=== PATIENT | male | born 1985 | race Caucasian/White ===

== ENCOUNTER 2022-10-18 14:09 | Emergency (ER) | payer OTHER, SELFPAY ==
[2022-10-18] VITALS (16 sets, daily range): BP systolic 110–138; BP diastolic 75–88; PULSE 62–85; RESP 14–24; TEMP 36.8; O2SAT 96–100; BMI 29.7
--- NOTE | 2022-10-18 14:22 | DI.RAD.S_ITS ---
PROCEDURE: XR CHEST 1V INDICATIONS: chest pain TECHNIQUE: One view of the chest was acquired. COMPARISON: None. FINDINGS: Surgical changes and devices: None. Lungs and pleura: Lungs are clear. No pleural effusions or pneumothorax. Mediastinum: Mediastinal contours appear normal. Heart size is normal. Bones and chest wall: No suspicious bony lesions. Overlying soft tissues appear unremarkable. IMPRESSION: No acute cardiopulmonary disease process. Dictated by: Neli Shultz MD, PhD on 10/18/2022 at 14:42 Approved by: Neli Shultz MD, PhD on 10/18/2022 at 14:42
[2022-10-18 15:18] LABS: Add Manual Diff / Slide Review NO; Basophils Absolute Auto 0 /uL (0-100); Basophils Percent Auto 0.7 % (0-2); Eosinophils Absolute Auto 100 /uL (0-450); Eosinophils Percent Auto 1.9 % (2-4); Hematocrit 39.2 % (41-53); Hemoglobin 13.3 g/dL (13.5-17.5); Lymphocytes Absolute Auto 1700 /uL (1100-4500); Lymphocytes Percent Auto 30.1 % (25-40); Mean Corpuscular HGB Conc 33.8 % (30-36); Mean Corpuscular Hemoglobin 28.2 PG (26-34); Mean Corpuscular Volume 83.3 fL (80-100); Monocytes Absolute Auto 700 /uL (0-900); Monocytes Percent Auto 11.9 % (3-14); Neutrophils Absolute Auto 3000 /uL (1500-7000); Neutrophils Percent Auto 55.4 % (50-75); Platelet Count 279 X10^3/uL (150-400); Red Blood Cell Count 4.71 X10^6/uL (4.5-5.9); Red Cell Distribution Width 13.8 % (11.6-14.8); White Blood Cell Count 5.5 X10^3/uL (4.5-11.0)
[2022-10-18] MEDS: ASPIRIN 81 MG CHEW TAB 324 MG PO (15:20)
[2022-10-18 15:24] LABS: INR 1.1 (0.9-1.3); Prothrombin Time 12.7 SECONDS (10.1-12.7)
[2022-10-18 15:27] LABS: PTT Partial Thromboplastin Tim 31 SECONDS (26-36)
[2022-10-18 15:29] LABS: Alanine Aminotransferase 26 IU/L (<50); Albumin 4.4 g/dL (3.5-5.0); Albumin Globulin Ratio 1.5 (1.0-2.8); Alkaline Phosphatase 59 U/L (38-126); Aspartate Aminotransferase 31 IU/L (17-59); Bilirubin Total 0.6 mg/dL (0.2-1.3); Blood Urea Nitrogen 16 mg/dL (9-20); Calcium 9.1 mg/dL (8.4-10.2); Carbon Dioxide 27 mmol/L (22-32); Chloride 102 mmol/L (98-107); Creatine Kinase 483 U/L (55-170); Estimated Glomerular Filt Rate > 60 mL/min (>60); Glucose 91 mg/dL (70-100); HEMOLYSIS < 15 (0-50); Lipase 67 U/L (23-300); Potassium 3.9 mmol/L (3.4-5.1); Sodium 138 mmol/L (137-145); Total Protein 7.4 g/dL (6.3-8.2)
[2022-10-18 15:41] LABS: Troponin I < 0.012 ng/mL (0.01-0.034)
[2022-10-18] MEDS: KETOROLAC 30 MG/ML VIAL 15 MG IV (17:29)
--- NOTE | 2022-10-18 17:52 | PC.NURSE ---
2nd EKG unable to be completed on this patient due to patient refusal as he states I'm close to leaving if I'm no seen soon. Provider notified.
--- NOTE | 2022-10-18 18:08 | ED_ITS ---
HPI - Chest Pain General Chief Complaint: Chest Pain Stated Complaint: Chest pain, SOB Time Seen by Provider: 10/18/22 14:42 Source: patient Mode of arrival: Ambulatory Limitations: no limitations History of Present Illness HPI narrative: Patient is a 36-year-old male who presents today with 3 days of increasing chest pressure. He reports that over last weekend did some work around the house pulled up some floorboard smell some chemical or mold stuff last 3 days he is had some pressure in his chest this morning he woke up it was worse on the left side. He is also noticed that he is having shortness of breath with exertion while going upstairs which is new him. He denies nausea vomiting or sweating. He does some burning sensation in his epigastric region but no significant burning in his chest no prior history of acid reflux. He reports that he gets his cholesterol checked himself and cholesterol was 266. He has been on a wait list to see a primary care for some time and actually has an appointment in 1 week. He reports that 2 of his uncles had MIs in their 40s but immediate family no known cardiac history. He is a nonsmoker. Pain is not reproduced with palpation or movement or breathing. It is fairly constant no provocation or palliation. Related Data Allergies Allergy/AdvReac Type Severity Reaction Status Date / Time No Known Drug Allergies Allergy Verified 10/18/22 14:21 Review of Systems Review of Systems ROS Unobtainable: All systems reviewed & are unremarkable except as noted in HPI and below Patient History Social History Smoking Status: Never smoker Smoking Status: Never smoker alcohol intake frequency: 0-2 drinks per day Substance Use Type: does not use Exam Initial Vital Signs Initial Vital Signs: Vital Signs Temperature 98.3 F 10/18/22 14:16 Pulse Rate 62 10/18/22 14:16 Respiratory Rate 20 10/18/22 14:16 Blood Pressure 128/86 10/18/22 14:16 Pulse Oximetry 97 10/18/22 14:16 Oxygen Delivery Method Room Air 10/18/22 14:16 GENERAL: Alert pleasant well-appearing 36-year-old male and in no acute distress. HEENT: Head atraumatic,EOMI, pupils reactive, face symmetric, moist mucous membranes CARDIOVASCULAR: Regular rate and rhythm without murmurs, rubs or gallops. RESPIRATORY: Breath sounds equal bilaterally, no wheezes rales or rhonchi. ABDOMEN: Soft, nontender. Normoactive bowel sounds all 4 quadrants. No guarding or rebound. EXTREMITIES: Normal range of motion, no clubbing or edema. Neurovascularly intact NEUROLOGICAL: Alert and oriented x4.Normal gait and speech. SKIN: Warm, dry, no laceration, no petechiae, no rashes or lesions. Scores HEART Score Heart Score history: Slightly Suspicious Heart Score EKG: Normal Heart Score Age: < 45 years old Heart Score risk factors: 1-2 risk factors Heart Score troponin: < or = to normal limit Heart Score Total: 1 Course Orders Ordered: Discontinued Medications Aspirin (Aspirin 81 Mg Chew Tab) 324 mg PO NOW ONE Stop: 10/18/22 14:23 Last Admin: 10/18/22 15:20 Dose: 324 mg Documented By: ABRAHAM Ketorolac Tromethamine (Ketorolac 30 Mg/Ml Vial) 15 mg IV NOW ONE Stop: 10/18/22 17:11 Last Admin: 10/18/22 17:29 Dose: 15 mg Documented By: ABRAHAM Vital Signs Vital signs: Vital Signs - 8 hr 10/18/22 14:16 10/18/22 14:58 10/18/22 15:00 Temperature 98.3 F Pulse Rate 62 75 Respiratory Rate 20 Blood Pressure 128/86 125/83 Pulse Oximetry 97 97 Oxygen Delivery Method Room Air 10/18/22 15:00 10/18/22 15:30 10/18/22 15:30 Temperature Pulse Rate 80 71 Respiratory Rate 17 20 Blood Pressure 119/79 Pulse Oximetry 98 97 Oxygen Delivery Method 10/18/22 16:00 10/18/22 16:00 10/18/22 16:15 Temperature Pulse Rate 67 71 Respiratory Rate 17 19 Blood Pressure 110/75 Pulse Oximetry 96 98 Oxygen Delivery Method 10/18/22 16:30 10/18/22 16:30 10/18/22 16:45 Temperature Pulse Rate 66 70 Respiratory Rate 19 19 Blood Pressure 114/75 Pulse Oximetry 96 97 Oxygen Delivery Method 10/18/22 17:00 10/18/22 17:00 10/18/22 17:15 Temperature Pulse Rate 68 63 Respiratory Rate 19 14 Blood Pressure 118/79 Pulse Oximetry 97 97 Oxygen Delivery Method 10/18/22 17:30 10/18/22 17:30 10/18/22 17:45 Temperature Pulse Rate 69 73 Respiratory Rate 18 20 Blood Pressure 126/86 Pulse Oximetry 98 98 Oxygen Delivery Method 10/18/22 18:00 10/18/22 18:00 10/18/22 18:15 Temperature Pulse Rate 85 78 Respiratory Rate 24 22 Blood Pressure 138/88 Pulse Oximetry 100 Oxygen Delivery Method MDM - Chest Pain Lab Data 10/18/22 15:10 10/18/22 15:10 Labs: Lab Results 10/18/22 10/18/22 10/18/22 Range/Units 15:10 15:10 15:10 WBC 5.5 (4.5-11.0) X10^3/uL RBC 4.71 (4.5-5.9) X10^6/uL Hgb 13.3 L (13.5-17.5) g/dL Hct 39.2 L (41-53) % MCV 83.3 (80-100) fL MCH 28.2 (26-34) PG MCHC 33.8 (30-36) % RDW 13.8 (11.6-14.8) % Plt Count 279 (150-400) X10^3/uL Neut % (Auto) 55.4 (50-75) % Lymph % (Auto) 30.1 (25-40) % Evangeline % (Auto) 11.9 (3-14) % Eos % (Auto) 1.9 L (2-4) % Baso % (Auto) 0.7 (0-2) % Neut # (Auto) 3000 (7125-0864) /uL Lymph # (Auto) 1700 (8497-2431) /uL Evangeline # (Auto) 700 (0-900) /uL Eos # (Auto) 100 (0-450) /uL Baso # (Auto) 0 (0-100) /uL PT 12.7 (10.1-12.7) SECONDS INR 1.1 (0.9-1.3) APTT 31 (26-36) SECONDS Sodium 138 (137-145) mmol/L Potassium 3.9 (3.4-5.1) mmol/L Chloride 102 (98-107) mmol/L Carbon Dioxide 27 (22-32) mmol/L BUN 16 (9-20) mg/dL Creatinine 1.23 (0.66-1.25) mg/dL Estimated GFR > 60 (>60) mL/min BUN/Creatinine Ratio 13.0 (6-22) Glucose 91 (70-100) mg/dL Calcium 9.1 (8.4-10.2) mg/dL Magnesium 2.0 (1.6-2.3) mg/dL Total Bilirubin 0.6 (0.2-1.3) mg/dL AST 31 (17-59) IU/L ALT 26 (<50) IU/L Alkaline Phosphatase 59 (38-126) U/L Total Creatine Kinase 483 H (55-170) U/L Troponin I < 0.012 (0.01-0.034) ng/mL Total Protein 7.4 (6.3-8.2) g/dL Albumin 4.4 (3.5-5.0) g/dL Globulin 3.0 (1.7-4.1) g/dL Albumin/Globulin Ratio 1.5 (1.0-2.8) Lipase 67 (23-300) U/L 10/18/22 Range/Units 17:45 WBC (4.5-11.0) X10^3/uL RBC (4.5-5.9) X10^6/uL Hgb (13.5-17.5) g/dL Hct (41-53) % MCV (80-100) fL MCH (26-34) PG MCHC (30-36) % RDW (11.6-14.8) % Plt Count (150-400) X10^3/uL Neut % (Auto) (50-75) % Lymph % (Auto) (25-40) % Evangeline % (Auto) (3-14) % Eos % (Auto) (2-4) % Baso % (Auto) (0-2) % Neut # (Auto) (7830-6906) /uL Lymph # (Auto) (9480-5590) /uL Evangeline # (Auto) (0-900) /uL Eos # (Auto) (0-450) /uL Baso # (Auto) (0-100) /uL PT (10.1-12.7) SECONDS INR (0.9-1.3) APTT (26-36) SECONDS Sodium (137-145) mmol/L Potassium (3.4-5.1) mmol/L Chloride (98-107) mmol/L Carbon Dioxide (22-32) mmol/L BUN (9-20) mg/dL Creatinine (0.66-1.25) mg/dL Estimated GFR (>60) mL/min BUN/Creatinine Ratio (6-22) Glucose (70-100) mg/dL Calcium (8.4-10.2) mg/dL Magnesium (1.6-2.3) mg/dL Total Bilirubin (0.2-1.3) mg/dL AST (17-59) IU/L ALT (<50) IU/L Alkaline Phosphatase (38-126) U/L Total Creatine Kinase (55-170) U/L Troponin I < 0.012 (0.01-0.034) ng/mL Total Protein (6.3-8.2) g/dL Albumin (3.5-5.0) g/dL Globulin (1.7-4.1) g/dL Albumin/Globulin Ratio (1.0-2.8) Lipase (23-300) U/L Imaging Data Chest x-ray: Radiologist's Impression: PROCEDURE:? XR CHEST 1V ? INDICATIONS:? chest pain ? TECHNIQUE:? One view of the chest was acquired.? ? COMPARISON:? None. ? FINDINGS:? ? Surgical changes and devices:? None.? ? Lungs and pleura:? Lungs are clear.? No pleural effusions or pneumothorax.? ? Mediastinum:? Mediastinal contours appear normal.? Heart size is normal.? ? Bones and chest wall:? No suspicious bony lesions.? Overlying soft tissues appear unremarkable.? ? IMPRESSION:? No acute cardiopulmonary disease process. ? ? Dictated by: Neli Shultz MD, PhD on 10/18/2022 at 14:42 ?? ECG Data Interpretation: Normal sinus rhythm rate 81 TN interval 150 QRS [address] changes no T- wave inversions MDM Narrative Medical decision making narrative: Patient 36-year-old male with history of hyperlipidemia not on medication presents today with chest pain ongoing for the last 3 days more consistent today. Low risk heart score. He has an appointment with the PCP next week. 2- troponins no EKG changes. I do recommend that he have an outpatient stress test we talked about how if symptoms worsen then he should return to the ED. However he is an appropriate discharge home with outpatient follow-up which is already scheduled. Discharge Plan Departure Patient Disposition: Home Clinical Impression: Atypical chest pain Instructions: DI for Atypical Chest Pain Activity Restrictions/Additional Instructions: *You have been diagnosed with atypical chest pain *What to do: At this time I do recommend getting an outpatient stress test and echo. Please talk with this about your primary care provider. *Continue to take medications as directed May try [id number] omeprazole 20 mg once a day, this may take a few days for you to see effect *Follow up with your primary care provider in 2-3 days or call [phone] *Return to ER if you should have increasing chest pain shortness of breath nausea or any new, worsening or concerning symptoms Referrals: Miscellaneous,Doctor, [Primary Care Provider] - Alejandro Delvalle DO [Physician] - Stand Alone Forms: Patient Portal/API
[2022-10-18 19:05] LABS: Troponin I < 0.012 ng/mL (0.01-0.034)
== END 2022-10-18 19:16 | disposition home or self-care (01) ==
PROVIDERS: Emergency Medicine; Emergency Provider Emergency Medicine
DX: R07.89 Other chest pain (principal)
CPT/HCPCS: 36415; 71045; 80053; 82550; 83690; 83735; 84484; 85025; 85610; 85730; 93005; 93010; 96374; 99284; J1885

== ENCOUNTER → 2022-10-26 16:18 | Outpatient (CLI) | payer OTHER, SELFPAY ==
--- NOTE | 2022-10-26 16:19 | DI.MRI.S_ITS ---
PROCEDURE: MR ANKLE LT WO CON INDICATIONS: eval L ankle osteochondritis TECHNIQUE: Noncontrast sagittal T1 spin echo and T2 fast spin echo with fat saturation, axial proton density fast spin echo and T2 fast spin echo with fat saturation, coronal T1 spin echo and T2 fast spin echo with fat saturation through the ankle/hindfoot. COMPARISON: None. FINDINGS: Image quality: Excellent. Bones and joints: Tiny 2-3 mm T2 hyperintense signal involving lateral weight-bearing portion of talar dome with mild adjacent edema is seen concerning for tiny osteochondral injuries. No other area of abnormal marrow signal. No fracture or dislocation. Small amount of tibiotalar joint effusion is seen, no gross loose bodies. Medial structures: The posterior tibialis, flexor digitorum longus, and flexor hallucis longus tendons are intact. Small amount of fluid distending flexor tendon sheath at the level of distal talus and talonavicular joint is seen. The posterior tibial neurovascular bundle appears normal within the tarsal tunnel, without extrinsic mass effect. Sprain/low-grade partial-thickness tear involving deltoid ligament and spring ligament is seen. Lateral structures: The anterior talofibular, calcaneofibular, and posterior talofibular ligaments appear intact. More superiorly, the anterior and posterior tibiofibular ligaments appear intact, as is the intermalleolar ligament. The tibiofibular syndesmosis is normal in width at 2 mm or less. The peroneus longus and brevis tendons demonstrate normal location and morphology. Small amount of fluid is seen distending peroneus tendon she is at the level of mid to distal calcaneus and calcaneocuboid joint. Adjacent bony peroneal tubercle and retrotrochlear prominence are normal in size. The sinus tarsi demonstrates normal fatty signal, without edema, fibrosis, or cyst formation. Visualized sinus tarsi components (cervical ligament, interosseous talocalcaneal ligament, roots of the inferior extensor retinaculum) appear normal. The calcaneonavicular and calcaneocuboid components of the bifurcate ligament appear intact. The dorsal calcaneocuboid ligament appears intact. Anterior structures: The tibialis anterior, extensor hallucis longus, and extensor digitorum longus tendons appear intact. The dorsal talonavicular ligament appears intact. Posterior and plantar structures: Achilles tendon is intact. Medial and lateral bands of the plantar fascia are of normal thickness. No abductor digiti quinti muscle atrophy to suggest Albarran neuropathy. IMPRESSION: 1. Tiny 2-3 mm osteochondral injuries involving lateral weight-bearing portion of talar dome with mild surrounding edema. No intra-articular loose bodies. Small amount of tibiotalar joint effusion. 2. Low-grade tenosynovitis involving flexor tendons and peroneus tendons as above. No full-thickness ankle tendon rupture. 3. Low-grade sprain/partial-thickness tear involving medial ankle ligaments. Lateral ankle ligaments are grossly intact. Dictated by: Sam Evans M.D. on 10/29/2022 at 10:22 Approved by: Sam Evans M.D. on 10/29/2022 at 10:25
== END ==
PROVIDERS: PCP Family Medicine; Referring Provider Family Medicine; Visit Provider Family Medicine
DX: M93.279 Osteochondritis dissecans, unspecified ankle and joints of foot (principal); M65.872 Other synovitis and tenosynovitis, left ankle and foot; S93.492A Sprain of other ligament of left ankle, initial encounter
CPT/HCPCS: 73721

== ENCOUNTER → 2023-01-17 08:10 | Outpatient (CLI) | payer OTHER, SELFPAY ==
[2023-01-17 09:02] LABS: Add Manual Diff / Slide Review NO; Basophils Absolute Auto 0 /uL (0-100); Basophils Percent Auto 0.6 % (0-2); Eosinophils Absolute Auto 100 /uL (0-450); Eosinophils Percent Auto 1.5 % (2-4); Hemoglobin 14.4 g/dL (13.5-17.5); Lymphocytes Absolute Auto 1500 /uL (1100-4500); Lymphocytes Percent Auto 27.5 % (25-40); Mean Corpuscular HGB Conc 34.3 % (30-36); Mean Corpuscular Hemoglobin 28.5 PG (26-34); Mean Corpuscular Volume 83.1 fL (80-100); Monocytes Absolute Auto 600 /uL (0-900); Monocytes Percent Auto 10.5 % (3-14); Neutrophils Absolute Auto 3300 /uL (1500-7000); Neutrophils Percent Auto 59.9 % (50-75); Platelet Count 270 X10^3/uL (150-400); Red Blood Cell Count 5.05 X10^6/uL (4.5-5.9); Red Cell Distribution Width 13.3 % (11.6-14.8); White Blood Cell Count 5.5 X10^3/uL (4.5-11.0)
[2023-01-17 09:51] LABS: HEMOLYSIS < 15 (0-50); Iron 55 ug/dL (49-181)
[2023-01-17 09:55] LABS: Alanine Aminotransferase 28 IU/L (<50); Albumin 4.4 g/dL (3.5-5.0); Albumin Globulin Ratio 1.4 (1.0-2.8); Alkaline Phosphatase 63 U/L (38-126); Aspartate Aminotransferase 26 IU/L (17-59); BUN Creatinine Ratio 22.4 (6-22); Bilirubin Total 0.7 mg/dL (0.2-1.3); Blood Urea Nitrogen 19 mg/dL (9-20); Calcium 10.1 mg/dL (8.4-10.2); Carbon Dioxide 27 mmol/L (22-32); Chloride 102 mmol/L (98-107); Cholesterol 228 mg/dL (140-199); Estimated Glomerular Filt Rate > 60 mL/min (>60); Globulin 3.2 g/dL (1.7-4.1); Glucose 92 mg/dL (70-100); HDL Cholesterol 53 mg/dL (40-60); HEMOLYSIS < 15 (0-50); LDL Cholesterol Calculated 146 mg/dL (<100); Potassium 4.4 mmol/L (3.4-5.1); Sodium 138 mmol/L (137-145); Total Protein 7.6 g/dL (6.3-8.2); Triglycerides 147 mg/dL (35-150)
[2023-01-17 10:03] LABS: Percent Iron Saturation 18 % (20-50); Total Iron Binding Capacity 309 ug/dL (261-462); Transferrin 250 mg/dL (206-381)
[2023-01-17 10:42] LABS: Vitamin B12 300 pg/mL (239-931)
[2023-01-17 13:21] LABS: Reticulocyte Count, Percent 1.3 % (0.9-2.6)
== END ==
PROVIDERS: PCP Family Medicine; Referring Provider Family Medicine; Visit Provider Family Medicine
DX: E78.00 Pure hypercholesterolemia, unspecified (principal); M93.20 Osteochondritis dissecans of unspecified site; D64.9 Anemia, unspecified
CPT/HCPCS: 36415; 80053; 80061; 82607; 83540; 83550; 85025; 85045

== ENCOUNTER → 2023-12-24 12:04 | Outpatient (CLI) | payer OTHER, SELFPAY ==
--- NOTE | 2023-12-24 | DI.RAD.S_ITS ---
PROCEDURE: XR CERVICAL SPINE MIN 6V INDICATIONS: cervical radiculopathy, history of injury TECHNIQUE: 7 views of the cervical spine were acquired. COMPARISON: None. FINDINGS: Cervical spine curvature and alignment: Normal no evidence of instability.. Bones: There are no osseous abnormalities. Disc spaces: Moderate C5-6 degenerative disc disease noted. Intervertebral foramen: Grossly normal in width. Soft tissues: No soft tissue swelling, calcification or mass. IMPRESSION: Moderate C5-6 degenerative disc disease. Dictated by: Eric Guevara M.D. on 12/25/2023 at 10:17 Approved by: Eric Guevara M.D. on 12/25/2023 at 10:18
== END ==
LOC: RAD 12:07
PROVIDERS: PCP Family Medicine; Referring Provider Student in an Organized Health Care Education/Training Program; Visit Provider Student in an Organized Health Care Education/Training Program
DX: M50.122 Cervical disc disorder at C5-C6 level with radiculopathy (principal); R29.898 Other symptoms and signs involving the musculoskeletal system; Z87.828 Personal history of other (healed) physical injury and trauma
CPT/HCPCS: 72052

== ENCOUNTER → 2024-02-25 13:43 | Outpatient (CLI) | payer OTHER, SELFPAY ==
--- NOTE | 2024-02-25 14:18 | DI.MRI.S_ITS ---
PROCEDURE: MR CERVICAL SPINE WO CON INDICATIONS: Radiculopathy, cervical region TECHNIQUE: Noncontrast sagittal T1 spin echo and T2 fast spin echo, sagittal STIR, foraminal oblique sagittal T2 fast spin echo, and axial gradient echo or T2 fast spin echo through the cervical spine. COMPARISON: None. FINDINGS: Image quality: Excellent. Alignment and Curvature: Straightening of the cervical lordosis. Bone Marrow: Marrow demonstrates normal overall signal. No acute fracture. Discs: Multilevel disc desiccation. Multilevel disc bulging, mild and most conspicuous at C5-C6, C6-C7 and C7-T1 (4/8). Spinal Cord: Visualized spinal cord has normal size and signal. No cerebellar tonsillar herniation. Paraspinous Soft Tissues: No paravertebral masses. Prevertebral soft tissues are normal in thickness. C2-C3: No severe central canal or foraminal stenosis. C3-C4: No severe central canal or foraminal stenosis. C4-C5: No severe central canal or foraminal stenosis. C5-C6: Diffuse disc bulge that effaces the ventral thecal sac with mild central canal stenosis. Mild-moderate right foraminal stenosis. No significant left foraminal stenosis. C6-C7: No severe central canal . Mild-moderate right foraminal stenosis. No significant left foraminal stenosis. C7-T1: No severe central canal or foraminal stenosis. IMPRESSION: 1. Mild disc bulge-related central canal stenosis at C5-C6 with mild-moderate right foraminal stenosis. 2. Mild-moderate right C6-C7 foraminal stenosis. Dictated by: Brayan Zuñiga M.D. on 02/25/2024 at 21:14 Approved by: Brayan Zuñiga M.D. on 02/25/2024 at 21:23
== END ==
PROVIDERS: PCP Family Medicine; Referring Provider Student in an Organized Health Care Education/Training Program; Visit Provider Student in an Organized Health Care Education/Training Program
DX: M50.122 Cervical disc disorder at C5-C6 level with radiculopathy (principal); M48.02 Spinal stenosis, cervical region
CPT/HCPCS: 72141

== ENCOUNTER → 2024-03-17 11:20 | Outpatient (CLI) | payer OTHER, SELFPAY ==
[2024-03-17 12:19] LABS: Add Manual Diff / Slide Review NO; Basophils Absolute Auto 0 /uL (0-100); Basophils Percent Auto 0.7 % (0-2); Eosinophils Absolute Auto 100 /uL (0-450); Eosinophils Percent Auto 2.5 % (2-4); Hematocrit 43.7 % (41-53); Hemoglobin 14.6 g/dL (13.5-17.5); Lymphocytes Absolute Auto 2000 /uL (1100-4500); Lymphocytes Percent Auto 36.5 % (25-40); Mean Corpuscular HGB Conc 33.4 % (30-36); Mean Corpuscular Hemoglobin 27.9 PG (26-34); Mean Corpuscular Volume 83.6 fL (80-100); Monocytes Absolute Auto 600 /uL (0-900); Monocytes Percent Auto 10.5 % (3-14); Neutrophils Absolute Auto 2700 /uL (1500-7000); Neutrophils Percent Auto 49.8 % (50-75); Platelet Count 322 X10^3/uL (150-400); Red Blood Cell Count 5.23 X10^6/uL (4.5-5.9); Red Cell Distribution Width 14.1 % (11.6-14.8); White Blood Cell Count 5.3 X10^3/uL (4.5-11.0)
[2024-03-17 12:50] LABS: Alanine Aminotransferase 41 IU/L (<50); Albumin 4.7 g/dL (3.5-5.0); Albumin Globulin Ratio 1.6 (1.0-2.8); Alkaline Phosphatase 67 U/L (38-126); Aspartate Aminotransferase 34 IU/L (17-59); BUN Creatinine Ratio 20.9 (6-22); Bilirubin Total 0.7 mg/dL (0.2-1.3); Blood Urea Nitrogen 18 mg/dL (9-20); Calcium 9.9 mg/dL (8.4-10.2); Carbon Dioxide 27 mmol/L (22-32); Chloride 106 mmol/L (98-107); Cholesterol 272 mg/dL (140-199); Estimated Glomerular Filt Rate > 60 mL/min (>60); Glucose 94 mg/dL (70-100); HDL Cholesterol 66 mg/dL (40-60); HEMOLYSIS < 15 (0-50); LDL Cholesterol Calculated 188 mg/dL (<100); Potassium 4.9 mmol/L (3.4-5.1); Sodium 139 mmol/L (137-145); Total Protein 7.7 g/dL (6.3-8.2); Triglycerides 90 mg/dL (35-150)
[2024-03-17 13:39] LABS: Vitamin B12 480 pg/mL (239-931)
== END ==
PROVIDERS: PCP Family Medicine; Referring Provider Family Medicine; Visit Provider Family Medicine
DX: D64.9 Anemia, unspecified (principal); E78.00 Pure hypercholesterolemia, unspecified
CPT/HCPCS: 36415; 80053; 80061; 82607; 85025

== ENCOUNTER → 2024-04-02 14:54 | Outpatient (CLI) | payer OTHER, SELFPAY ==
[2024-04-02 16:51] LABS: TSH w/ Reflex to FT4 1.95 uIU/mL (0.47-4.68)
== END ==
PROVIDERS: PCP Family Medicine; Referring Provider Family Medicine; Visit Provider Family Medicine
DX: M54.2 Cervicalgia (principal)
CPT/HCPCS: 36415; 82397; 84443

== ENCOUNTER → 2024-04-14 15:42 | Outpatient (CLI) | payer OTHER, SELFPAY ==
--- NOTE | 2024-04-14 15:43 | DI.US.S_ITS ---
PROCEDURE: US SOFT TISSUE HEAD AND NECK INDICATIONS: BILATERAL SUPERIOR/ANTERIOR NECK PAIN TECHNIQUE: Real-time scanning was performed of the neck region of interest, with image documentation. COMPARISON: None. FINDINGS: Sonographic images of the neck demonstrate normal appearance of the thyroid and submandibular glands. No focal fluid collection. Borderline enlarged left neck lymph node measuring 1.3 cm in short axis. IMPRESSION: Nonspecific findings with slightly increased size of left neck lymph node. Dictated by: Haylie Douglas M.D. on 04/14/2024 at 20:15 Approved by: Haylie Douglas M.D. on 04/14/2024 at 20:16
== END ==
LOC: US 15:43
PROVIDERS: PCP Family Medicine; Referring Provider Family Medicine; Visit Provider Family Medicine
DX: M54.2 Cervicalgia (principal)
CPT/HCPCS: 76536

== ENCOUNTER 2024-04-17 16:13 | Emergency (ER) | payer OTHER, SELFPAY ==
[2024-04-17] VITALS (9 sets, daily range): BP systolic 113–145; BP diastolic 67–108; PULSE 71–92; RESP 9–25; TEMP 36.7; O2SAT 96–100; BMI 28.1
--- NOTE | 2024-04-17 16:29 | DI.RAD.S_ITS ---
PROCEDURE: XR CHEST 1V INDICATIONS: chest pain TECHNIQUE: One view of the chest was acquired. COMPARISON: [facility], CR, XR CHEST 1V, 10/18/2022, 14:35. FINDINGS: Surgical changes and devices: None. Lungs and pleura: Lungs are clear. No pleural effusions or pneumothorax. Mediastinum: Mediastinal contours appear normal. Heart size is normal. Bones and chest wall: No suspicious bony lesions. Overlying soft tissues appear unremarkable. IMPRESSION: No acute cardiopulmonary pathology. Dictated by: Sam Evans M.D. on 04/17/2024 at 17:10 Approved by: Sam Evans M.D. on 04/17/2024 at 17:10
--- NOTE | 2024-04-17 16:29 | EKG_ITS ---
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
[2024-04-17 16:36] LABS: Add Manual Diff / Slide Review NO; Basophils Absolute Auto 0 /uL (0-100); Basophils Percent Auto 0.5 % (0-2); Eosinophils Absolute Auto 100 /uL (0-450); Eosinophils Percent Auto 1.5 % (2-4); Hematocrit 43.9 % (41-53); Hemoglobin 14.5 g/dL (13.5-17.5); Lymphocytes Absolute Auto 1900 /uL (1100-4500); Lymphocytes Percent Auto 32.1 % (25-40); Mean Corpuscular Hemoglobin 27.9 PG (26-34); Mean Corpuscular Volume 84.6 fL (80-100); Monocytes Absolute Auto 500 /uL (0-900); Neutrophils Absolute Auto 3400 /uL (1500-7000); Neutrophils Percent Auto 56.9 % (50-75); Platelet Count 310 X10^3/uL (150-400); Red Blood Cell Count 5.19 X10^6/uL (4.5-5.9); Red Cell Distribution Width 13.8 % (11.6-14.8)
[2024-04-17 16:40] LABS: INR 1.2 (0.9-1.3); Prothrombin Time 13.2 SECONDS (9.4-12.5)
[2024-04-17 16:43] LABS: PTT Partial Thromboplastin Tim 36 SECONDS (25.1-36.5)
[2024-04-17 16:44] LABS: Alanine Aminotransferase 38 IU/L (<50); Albumin Globulin Ratio 1.5 (1.0-2.8); Alkaline Phosphatase 62 U/L (38-126); Aspartate Aminotransferase 33 IU/L (17-59); BUN Creatinine Ratio 18.6 (6-22); Bilirubin Total 0.8 mg/dL (0.2-1.3); Blood Urea Nitrogen 16 mg/dL (9-20); Calcium 9.3 mg/dL (8.4-10.2); Carbon Dioxide 27 mmol/L (22-32); Chloride 104 mmol/L (98-107); Creatine Kinase 176 U/L (55-170); Estimated Glomerular Filt Rate > 60 mL/min (>60); Globulin 3.4 g/dL (1.7-4.1); Glucose 91 mg/dL (70-100); HEMOLYSIS < 15 (0-50); Lipase 79 U/L (23-300); Potassium 3.8 mmol/L (3.4-5.1); Sodium 138 mmol/L (137-145); Total Protein 8.4 g/dL (6.3-8.2)
[2024-04-17 16:56] LABS: NT-proBNP (BNP-Adult 18+) < 20 pg/mL (<125); Troponin I < 0.012 ng/mL (0.01-0.034)
--- NOTE | 2024-04-17 18:47 | PC.NURSE ---
Patient reports epigastric pain with frequent burping. He also reports he had an episode 12 days ago of intense chest pain in which he doubled over in pain and the pain wrapped around to his back. He wonders did I pull a muscle in my ribs maybe?
--- NOTE | 2024-04-17 19:17 | PC.NURSE ---
Pt awake and alert sitting in ED stretcher at this time. Pt requesting to be laid back flat to help relieve epigastric pressure. Pt states some pressure relieved with burping. Pt remians connected to cardiac, resp, blood pressure, and pulse ox monitors with alarms on and audible. Call light within reach.
--- NOTE | 2024-04-17 19:55 | ED.CHESTPAIN ---
HPI - Chest Pain General Chief Complaint: Chest Pain Stated Complaint: WIC; Chest Pain Time Seen by Provider: 04/17/24 19:55 Source: patient Mode of arrival: Ambulatory Limitations: no limitations History of Present Illness HPI narrative: 38-year-old male past medical history of hyperlipidemia comes into the ED from home for evaluation of chest pain upper abdominal pain ongoing persistent for the past 12 days. Was sent in by urgent Care/walk-in clinic given persistent symptoms. Patient states that his symptoms started approximately 12 weeks ago spontaneously after changing his diet to a more healthier 1 in March. States that he feels epigastric pain distension and excessive amount of burping randomly throughout the day but normally exacerbated whenever he eats or drinks anything. He denies any symptoms such as headache visual disturbances fever chills nausea vomiting or any other GI/ symptoms time not on any blood thinners no recent travel no known sick contacts Related Data Home Medications Medication Instructions Recorded Confirmed whey protein concentrate [GI PO 01/22/23 04/02/24 Protect] Previous Rx's Medication Instructions Recorded omeprazole 20 mg tablet,delayed 20 mg PO DAILY #30 tabs 01/22/23 release famotidine 20 mg tablet (Pepcid) 20 mg PO BID 1 month #60 tabs 04/17/24 Allergies Allergy/AdvReac Type Severity Reaction Status Date / Time No Known Drug Allergies Allergy Verified 04/02/24 13:59 Review of Systems Review of Systems Narrative: General: Denies fever, chills, weight loss HEENT: Denies headache, eye drainage, eye irritation, head trauma, sore throat, voice change Cardiovascular: Positive chest pain, denies palpitations, shortness of breath, tachycardia Respiratory: Denies any shortness of breath, cough, wheeze, stridor GI/: Positive abdominal pain, denies nausea, vomiting, diarrhea, bright red blood per rectum, melanotic stools, urinary frequency, urinary retention, dysuria, hematuria MSK: Denies any joint pain, muscle pains, swelling Skin: Denies any rashes, lesions, discoloration Neuro: Denies any headache, lightheadedness, dizziness, fainting, weakness Psych: Denies SI/HI Patient History Medical History Neck pain Hyperlipidemia Suicidal ideation Encounter for wellness examination in adult PTSD (post-traumatic stress disorder) (~2013) Personality disorder (~2013) Migraines Headache Shoulder pain (~2019) Fractures (~2003) Foot pain (~2003) Ankle pain (~2003) Chicken pox (~1991) Low testosterone Anemia Stress fracture Superior labrum [id number] (SLAP) tear of left shoulder Osteochondritis dissecans of ankle IBS (irritable bowel syndrome) Surgical History Anesthesia History of inguinal hernia repair (~02/2014) Family History Father Diabetes mellitus Social History Smoking Status: Never smoker Smoking Status: Never smoker alcohol intake frequency: 0-2 drinks per day Exam Narrative Exam Narrative: General: Cooperative, comfortable, well-developed, not in acute distress HEENT: Normocephalic, atraumatic, PERRLA, normal sclera, eyelids normal, Neck: Active full range of motion, atraumatic Chest: Normal to inspection, negative crepitus, no overlying erythema ecchymosis Respiratory: Normal respiratory effort, not in acute respiratory distress, clear to auscultation bilaterally negative cough, wheeze, tachypnea, rhonchi, rales Cardiology: Regular rate rhythm negative gallop, murmur, rubs GI/: Normal to inspection, soft, nonrigid, no tenderness to palpation, exam deferred MSK: Full range of active range of motion of all 4 extremities, atraumatic Skin: No rashes lesions noted Neuro: Alert awake oriented x3, moves all 4 extremities spontaneously, cranial nerves intact, able to answer all questions appropriately follows commands appropriately Psych: Cooperative, negative suicidal or homicidal ideations Initial Vital Signs Initial Vital Signs: Vital Signs Temperature 98.0 F 04/17/24 16:27 Pulse Rate 87 04/17/24 16:27 Respiratory Rate 14 04/17/24 16:27 Blood Pressure 131/83 04/17/24 16:27 Pulse Oximetry 100 04/17/24 16:27 Oxygen Delivery Method Room Air 04/17/24 16:27 Course Orders Ordered: ED Orders 04/17/24 16:20 Complete Blood Count AUTO DIFF Stat Comprehensive Metabolic Panel Stat Lipase Stat Magnesium Stat NT-proBNP (BNP-Adult 18+) Stat PTT Partial Thromboplastin René Stat Prothrombin Time INR Stat Troponin & CK Cardiac Panel Stat 04/17/24 16:29 XR chest 1V Stat EKG-12 Lead Stat 04/17/24 20:09 CT abdomen pelvis w con Stat Discontinued Medications Al Hydrox/Mg Hydrox/Simethicone (Mag Hydrox/Alum/Simeth 30 Ml Udc) 30 ml PO NOW ONE Stop: 04/17/24 20:11 Last Admin: 04/17/24 20:22 Dose: 30 ml Documented By: LS Famotidine (Famotidine 20 Mg/2 Ml Vial) 20 mg IV NOW LUCERO Famotidine (Famotidine 20 Mg/2 Ml Vial) 20 mg IV NOW ONE Stop: 04/17/24 20:18 Last Admin: 04/17/24 20:22 Dose: 20 mg Documented By: CURT Vital Signs Vital signs: Vital Signs - 8 hr 04/17/24 16:27 04/17/24 18:36 04/17/24 18:37 Temperature 98.0 F Pulse Rate 87 92 H Respiratory Rate 14 13 Blood Pressure 131/83 145/108 H Pulse Oximetry 100 99 Oxygen Delivery Method Room Air 04/17/24 18:37 04/17/24 19:00 04/17/24 19:00 Temperature Pulse Rate 82 74 Respiratory Rate 9 L 19 Blood Pressure 122/72 Pulse Oximetry 99 96 Oxygen Delivery Method Room Air 04/17/24 19:30 04/17/24 19:30 04/17/24 20:00 Temperature Pulse Rate 71 83 Respiratory Rate 18 25 H Blood Pressure 113/67 Pulse Oximetry 98 96 Oxygen Delivery Method Room Air Room Air 04/17/24 20:00 04/17/24 20:25 04/17/24 20:25 Temperature Pulse Rate 74 Respiratory Rate Blood Pressure 116/71 131/80 Pulse Oximetry 99 Oxygen Delivery Method Room Air MDM - Chest Pain Differential Diagnosis Differential diagnosis: Likely other (ACS, pneumonia, electrolyte abnormality, GERD, pancreatitis) Lab Data 04/17/24 16:20 04/17/24 16:20 Labs: Lab Results 04/17/24 Range/Units 16:20 WBC 6.0 (4.5-11.0) X10^3/uL RBC 5.19 (4.5-5.9) X10^6/uL Hgb 14.5 (13.5-17.5) g/dL Hct 43.9 (41-53) % MCV 84.6 (80-100) fL MCH 27.9 (26-34) PG MCHC 33.0 (30-36) % RDW 13.8 (11.6-14.8) % Plt Count 310 (150-400) X10^3/uL Neut % (Auto) 56.9 (50-75) % Lymph % (Auto) 32.1 (25-40) % Crisp % (Auto) 9.0 (3-14) % Eos % (Auto) 1.5 L (2-4) % Baso % (Auto) 0.5 (0-2) % Neut # (Auto) 3400 (0308-3009) /uL Lymph # (Auto) 1900 (3386-5578) /uL Crisp # (Auto) 500 (0-900) /uL Eos # (Auto) 100 (0-450) /uL Baso # (Auto) 0 (0-100) /uL PT 13.2 H (9.4-12.5) SECONDS INR 1.2 (0.9-1.3) APTT 36 (25.1-36.5) SECONDS Sodium 138 (137-145) mmol/L Potassium 3.8 (3.4-5.1) mmol/L Chloride 104 (98-107) mmol/L Carbon Dioxide 27 (22-32) mmol/L BUN 16 (9-20) mg/dL Creatinine 0.86 (0.66-1.25) mg/dL Estimated GFR > 60 (>60) mL/min BUN/Creatinine Ratio 18.6 (6-22) Glucose 91 (70-100) mg/dL Calcium 9.3 (8.4-10.2) mg/dL Magnesium 2.0 (1.6-2.3) mg/dL Total Bilirubin 0.8 (0.2-1.3) mg/dL AST 33 (17-59) IU/L ALT 38 (<50) IU/L Alkaline Phosphatase 62 (38-126) U/L Total Creatine Kinase 176 H (55-170) U/L Troponin I < 0.012 (0.01-0.034) ng/mL NT-Pro-B Natriuret Pep < 20 (<125) pg/mL Total Protein 8.4 H (6.3-8.2) g/dL Albumin 5.0 (3.5-5.0) g/dL Globulin 3.4 (1.7-4.1) g/dL Albumin/Globulin Ratio 1.5 (1.0-2.8) Lipase 79 (23-300) U/L Imaging Data Chest x-ray: Radiologist's Impression: [place] [address] XRay Report Signed Patient: Adebayo Junior MR#: [id number] : 1985 Acct:[id number] Age/Sex: 38 / M Date of Service: 04/17/24 Loc: ED Accession Number: [id number] Procedure: XR chest 1V Ordering Provider: Stefani Mccartney D.O. PROCEDURE: XR CHEST 1V INDICATIONS: chest pain TECHNIQUE: One view of the chest was acquired. COMPARISON: [facility], , XR CHEST 1V, 10/18/2022, 14:35. FINDINGS: Surgical changes and devices: None. Lungs and pleura: Lungs are clear. No pleural effusions or pneumothorax. Mediastinum: Mediastinal contours appear normal. Heart size is normal. Bones and chest wall: No suspicious bony lesions. Overlying soft tissues appear unremarkable. IMPRESSION: No acute cardiopulmonary pathology. CT scan - abdomen/pelvis: Radiologist's Impression: [place] [address] CT Scan Report Signed Patient: Adebayo Junior MR#: [id number] : 1985 Acct:[id number] Age/Sex: 38 / M Date of Service: 04/17/24 Loc: ED Accession Number: [id number] Procedure: CT abdomen pelvis w con Ordering Provider: Sridhar Anton D.O. PROCEDURE: CT ABDOMEN PELVIS W CON INDICATIONS: epigastric pain TECHNIQUE: After the administration of intravenous contrast, axial sections acquired from the lung bases to the pubic symphysis. Coronal and sagittal reformats were performed. For radiation dose reduction, the following was used: automated exposure control, adjustment of mA and/or kV according to patient size. COMPARISON: None. FINDINGS: Image quality: Diagnostic. Lower Chest: No significant findings. ABDOMEN: Liver: No solid mass. Gallbladder: No radiopaque gallstones or wall thickening. Biliary ducts: No biliary dilation. Pancreas: No ductal dilation. Spleen: Size is within normal limits. Adrenal Glands: No adrenal nodules. Kidneys and Ureters: No hydronephrosis. No solid mass. No complex renal cystic lesion which requires follow up. Stomach and Bowel: Normal colonic caliber, without significant wall thickening. Normal appendix. Peritoneum: No abnormal intraperitoneal fluid. No free air. Ventral Wall: Small fat containing umbilical hernia. Abdominal Nodes: No retroperitoneal or mesenteric adenopathy by size criteria. Vessels: Aorta and inferior vena cava are normal in size. PELVIS: Pelvic Organs: Unremarkable. Bladder: No bladder wall thickening, accounting for underdistention. Pelvic Nodes: No enlarged lymph nodes. Miscellaneous: No inguinal hernias are seen. Bones: No aggressive osseous abnormality. Mild degenerative changes of the spine. IMPRESSION: 1. No acute findings within the abdomen or pelvis to explain patient's symptoms. 2. No inguinal hernias. ECG Data Interpretation: EKG interpreted ED physician sinus 81 beats per minute QTC 401, normal axis nonspecific ST changes no STEMI MDM Narrative Medical decision making narrative: 38-year-old male without any significant past medical history presents for epigastric pain since 12 days ago, staying eating drinking makes it worse. Patient had EKG nonischemic chest x-ray without any acute cardiopulmonary abnormalities, troponin negative remainder of his lab work was unremarkable. Patient did have CT scan which did not show any acute findings. Symptoms more likely GERD in relation to his symptoms. Patient was instructed to follow up with both GI and Cardiology in outpatient setting he was given strict return precautions will be started on Pepcid, he verbalized understanding of this and agrees to being discharged home with outpatient follow up Discharge Plan Departure Patient Disposition: Home Clinical Impression: Abdominal pain, epigastric Instructions: DI for Epigastric Pain Activity Restrictions/Additional Instructions: Please follow up with GI Cardiology and primary care in outpatient setting Please read the discharge instructions sheet carefully and bring all papers to all doctor follow-up visits, as it may contain information that your doctor may want to see. Disease processes change and evolve, if your symptoms worsen or if you develop any new symptoms that are concerning to you please return for evaluation. Your evaluation today does not show any evidence of any life-threatening/serious illnesses requiring admission to the hospital or surgery. Please follow-up with your doctor for re-evaluation in approximately 1 day. Seek immediate medical attention for any worrisome symptoms. *If you do not have a primary care provider please contact the [facility] Resource line at [phone]. They will ask some questions about your medical history and help get you set up with a doctor in the community. Prescriptions: New famotidine [Pepcid] 20 mg tablet 20 mg PO BID 30 Days Qty: 60 0RF No Action whey protein concentrate [GI Protect] PO omeprazole 20 mg tablet,delayed release (DR/EC) 20 mg PO DAILY Qty: 30 1RF Referrals: Alejandro Delvalle, [Primary Care Provider] - Stand Alone Forms: Patient Portal/API/Survey
--- NOTE | 2024-04-17 20:09 | DI.CT.S_ITS ---
PROCEDURE: CT ABDOMEN PELVIS W CON INDICATIONS: epigastric pain TECHNIQUE: After the administration of intravenous contrast, axial sections acquired from the lung bases to the pubic symphysis. Coronal and sagittal reformats were performed. For radiation dose reduction, the following was used: automated exposure control, adjustment of mA and/or kV according to patient size. COMPARISON: None. FINDINGS: Image quality: Diagnostic. Lower Chest: No significant findings. ABDOMEN: Liver: No solid mass. Gallbladder: No radiopaque gallstones or wall thickening. Biliary ducts: No biliary dilation. Pancreas: No ductal dilation. Spleen: Size is within normal limits. Adrenal Glands: No adrenal nodules. Kidneys and Ureters: No hydronephrosis. No solid mass. No complex renal cystic lesion which requires follow up. Stomach and Bowel: Normal colonic caliber, without significant wall thickening. Normal appendix. Peritoneum: No abnormal intraperitoneal fluid. No free air. Ventral Wall: Small fat containing umbilical hernia. Abdominal Nodes: No retroperitoneal or mesenteric adenopathy by size criteria. Vessels: Aorta and inferior vena cava are normal in size. PELVIS: Pelvic Organs: Unremarkable. Bladder: No bladder wall thickening, accounting for underdistention. Pelvic Nodes: No enlarged lymph nodes. Miscellaneous: No inguinal hernias are seen. Bones: No aggressive osseous abnormality. Mild degenerative changes of the spine. IMPRESSION: 1. No acute findings within the abdomen or pelvis to explain patient's symptoms. 2. No inguinal hernias. Dictated by: Charli Garcia M.D. on 04/17/2024 at 20:38 Approved by: Charli Garcia M.D. on 04/17/2024 at 20:42
--- NOTE | 2024-04-17 20:16 | PC.NURSE ---
Pt ambulatory to imaging with medical technologist generalist
[2024-04-17] MEDS: FAMOTIDINE 20 MG/2 ML VIAL IV (20:22)
[2024-04-17] MEDS: MAG HYDROX/ALUM/SIMETH 30 ML UDC PO (20:22)
== END 2024-04-17 21:03 | disposition home or self-care (01) ==
PROVIDERS: Emergency Medicine; Emergency Provider Student in an Organized Health Care Education/Training Program; PCP Family Medicine
DX: R07.9 Chest pain, unspecified (principal); R10.13 Epigastric pain; E78.5 Hyperlipidemia, unspecified
CPT/HCPCS: 36415; 71045; 74177; 80053; 82550; 83690; 83735; 83880; 84484; 85025; 85610; 85730; 93005; 96374; 99284; 99285; Q9967